=== PATIENT | male | born 1985 ===

== ENCOUNTER → 2018-09-28 13:12 | Outpatient (REF) | payer OTHER, SELFPAY ==
[2018-09-28 13:22] LABS: Hematocrit 45.6 % (41-53); Hemoglobin 15.3 g/dL (13.5-17.5)
== END ==
LOC: LAB 13:12
PROVIDERS: Visit Provider Family Medicine
DX: D64.9 Anemia, unspecified (principal)
CPT/HCPCS: 36415; 85014; 85018